=== PATIENT | male | born 2000 | race Caucasian/White ===

== ENCOUNTER 2024-07-15 13:20 | Emergency (ER) | payer MEDICAID ==
[~2024-07-15] VITALS: Ht 177.8 cm; Wt 82.0 kg
[2024-07-15 13:22] VITALS: BP 147/80; PULSE 76; RESP 15; TEMP 99; O2SAT 100
== END 2024-07-15 15:43 | disposition left against medical advice (07) ==
LOC: ER 13:20
DX: T78.40XA Allergy, unspecified, initial encounter (principal); Z53.21 Procedure and treatment not carried out due to patient leaving prior to being seen by health care provider; X58.XXXA Exposure to other specified factors, initial encounter